=== PATIENT | female | born 1940 | race Caucasian/White ===

== ENCOUNTER 2021-03-15 14:42 | Emergency (ER) | payer MEDICARE, OTHER ==
[~2021-03-15 14:42] MED LIST: ACCUPRIL20 MG PO; ARICEPT10 MG PO; B COMPLEX WITH1 EACH PO; BUSPIRONE HCL5 MG PO; ENOXAPARIN40 MG/0.4 SC; FERROUS GLUCON324 M1 PO; HYDROCHLOROTH12.5 M1 PO; LOPRESSOR 25 MG25 MG PO; MULTI-VITAMIN1 EACH PO; NABUMETONE750 MG PO; OS-CAL 500+D31 EACH PO; PERCOCET 5/325 T1 EA PO; POLYETHYLENE GL17 GM PO; PRIMIDONE50 MG PO; PROTONIX40 MG PO; PROVENTIL HFA6.7 GM INH; SIMVASTATIN20 MG PO; TYLENOL325 MG PO; ULTRAM50 MG PO; Voltaren Gel 1 % TOP; ZOFRAN4 MG PO; ZOLOFT25 MG PO
[2021-03-15 15:33] LABS: RED BLOOD COUNT 3.52 M/UL (4.00-5.10); WHITE BLOOD COUNT 7.7 K/UL (4.5-11.0)
== END 2021-03-15 17:50 | disposition home or self-care (01) ==
LOC: ER1 14:42
PROVIDERS: Emergency Medicine
DX: R10.11 Right upper quadrant pain (principal); E11.9 Type 2 diabetes mellitus without complications; I10 Essential (primary) hypertension
CPT/HCPCS: 51701; 70450; 71045; 80053; 81001; 82550; 82553; 83605; 83690; 83874; 84484; 85025; 93005; 96374; 96375; 99285; J2270; J2405; J7030